=== PATIENT | female | born 1950 | race Caucasian/White ===

== ENCOUNTER → 2023-07-20 10:31 | Outpatient (BNVA) | payer OTHER, SELFPAY | PROVIDERS: Family Provider Nurse Practitioner Family; PCP Nurse Practitioner Family; Visit Provider Nurse Practitioner Family | DX: Z13.220 Encounter for screening for lipoid disorders (principal); Z13.1 Encounter for screening for diabetes mellitus; Z00.00 Encounter for general adult medical examination without abnormal findings | CPT/HCPCS: 80053; 80061 ==

== ENCOUNTER 2024-09-26 09:30 | Outpatient (CLI) | payer OTHER, SELFPAY ==
--- NOTE | 2024-09-26 09:34 | CT_ITS ---
WS: [id number] CT TEMPORAL BONES TECHNIQUE: Noncontrast CT of the temporal bones with coronal and sagittal reformatted images. 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 DLP: 319.[address] scans at [facility] use at least one of these dose optimization techniques: automated e xposure control; mA and/or kV adjustment per patient size (includes targeted exams where dose is matc hed to clinical indication); or iterative reconstruction. FINDINGS: Mastoid air cells are well aerated bilaterally. Mucosal thickening in the ethmoid air cells . Mucosal thickening in the RIGHT frontoethmoidal recess. Sphenoid sinuses are well aerated. Normal p terygoid plates. Normal posterior nasopharynx. Normal parapharyngeal fat. RIGHT: Mastoid air cells are well aerated. Normal external auditory canal. Ossicles are normal in appearance . Middle ear is well aerated. Normal tegmen tympani. Semicircular canals and cochlea are normal in ap pearance. Prussak's space is normal. Normal inner ear structures. Normal vestibular aqueduct. Facial nerve recess is normal. LEFT: Mastoid air cells are well aerated. Normal external auditory canal. Ossicles are normal in appearance . Middle ear is well aerated. Normal tegmen tympani. Semicircular canals and cochlea are normal in ap pearance. Prussak's space is normal. Normal inner ear structures. Normal vestibular aqueduct. Facial nerve recess is normal. CT/CT temporal bone wo con* [id number] IMPRESSION: 1. Mastoid air cells are well aerated bilaterally. 2. Normal ossicles bilaterally. Slight retraction of the tympanic membrane arnold aterally. Middle ear's are well aerated. 3. Inner ear structures are symmetric and normal in appearance bilaterally.
== END 2024-09-26 09:32 | disposition home or self-care (01) ==
PROVIDERS: Family Provider Nurse Practitioner Family; PCP Nurse Practitioner Family; Visit Provider Specialist
DX: H74.12 Adhesive left middle ear disease (principal); H72.01 Central perforation of tympanic membrane, right ear; H90.6 Mixed conductive and sensorineural hearing loss, bilateral; H90.8 Mixed conductive and sensorineural hearing loss, unspecified; H69.83 Other specified disorders of Eustachian tube, bilateral; H93.13 Tinnitus, bilateral
CPT/HCPCS: 70480